=== PATIENT | male | born 2005 | race Caucasian/White ===

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

== ENCOUNTER → 2024-05-31 | Emergency (ER) | payer OTHER ==
[~2024-05-31] VITALS: Ht 180.3 cm; Wt 68.6 kg
[2024-05-31 13:32] VITALS: BP 128/76; PULSE 88; RESP 18; TEMP 97.1; O2SAT 99
== END | disposition home or self-care (01) ==
LOC: EMS 13:17
DX: S05.11XA Contusion of eyeball and orbital tissues, right eye, initial encounter (principal); W22.8XXA Striking against or struck by other objects, initial encounter; Y93.89 Activity, other specified; Y92.89 Other specified places as the place of occurrence of the external cause; Y99.8 Other external cause status
CPT/HCPCS: 99283; Z7502